=== PATIENT | female | born 1970 | race African-American/Black ===

== ENCOUNTER 2017-12-20 00:42 | Emergency (ER) | payer OTHER ==
[~2017-12-20] VITALS: Ht 167.6 cm; Wt 90.0 kg
[2017-12-20] MEDS ORDERED: DIPH25CA48 PO (01:02)
[2017-12-20] MEDS ORDERED: PRED20 PO (01:02)
[2017-12-20] MEDS ORDERED: INSLAN SQ (01:02)
[2017-12-20] MEDS ORDERED: ALBU8.5H8 IH (01:02)
[2017-12-20 01:03] LABS: GLUCOSE,POINT OF CARE 240 MG/DL (70-110)
[2017-12-20 01:46] LABS: BASOPHILS % (AUTO) 0.1 % (0.0-2.0); EOSINOPHILS % (AUTO) 0 % (1.0-6.0); HEMATOCRIT 37.2 % (36-46); HEMOGLOBIN 12.8 g/dL (12.0-16.0); LYMPHOCYTES # (AUTO) 1.8 K/uL (1.0-4.8); LYMPHOCYTES % (AUTO) 21.8 % (22.0-44.0); MEAN CORPUSCULAR HEMOGLOBIN 29.1 pg (26.0-34.0); MEAN CORPUSCULAR HGB CONC 34.4 G/dL (31.0-37.0); MEAN CORPUSCULAR VOLUME 85 fL (80-100); MONOCYTES # (AUTO) 0.7 K/uL (0.1-1.0); NEUTROPHILS # (AUTO) 5.8 K/uL (1.8-7.7); NEUTROPHILS % (AUTO) 70.1 % (40.0-70.0); PLATELET COUNT (AUTO) 201 K/uL (150-450); RED CELL DISTRIBUTION WIDTH 14.6 % (11.5-14.5)
[2017-12-20 01:54] LABS: ANION GAP 9 mmol/L (8-16); CALCIUM, TOTAL 8.8 mg/dL (8.8-10.5); CARBON DIOXIDE 26 mmol/L (22-29); CHLORIDE 104 mmol/L (98-107); CREATININE 0.52 mg/dL (0.60-1.30); GLOMERULAR FILTR. RATE CALC > 60 mL/min (>60); GLUCOSE,RANDOM 214 mg/dL (70-110); POTASSIUM 3.5 mmol/L (3.5-5.1); SODIUM SERUM 139 mmol/L (136-145); UREA NITROGEN, BLOOD 9 mg/dL (7-18)
[2017-12-20 02:00] LABS: ALANINE AMINOTRANSFERASE 32 U/L (12-78); ALBUMIN 3.7 g/dL (3.4-5.0); ALKALINE PHOSPHATASE 123 U/L (46-116); ASPARTATE AMINOTRANSFERASE 16 U/L (15-37); BILIRUBIN,TOTAL 0.7 mg/dL (0.1-1.0); TOTAL PROTEIN, SERUM 6.8 g/dL (6.4-8.2)
[2017-12-20 03:15] LABS: AMPHET/METH SCREEN,URINE NEGATIVE (NEGATIVE); BARBITURATE SCREEN, URINE NEGATIVE (NEGATIVE); BENZODIAZEPINES SCREEN,URINE NEGATIVE (NEGATIVE); CANNABINOID SCREEN,URINE NEGATIVE (NEGATIVE); COCAINE SCREEN,URINE NEGATIVE (NEGATIVE); METHADONE SCREEN, URINE NEGATIVE (NEGATIVE); OPIATE SCREEN,URINE NEGATIVE (NEGATIVE)
[2017-12-20 03:16] LABS: PHENCYCLIDINE SCREEN,URINE NEGATIVE (NEGATIVE)
[2017-12-20 03:30] VITALS: BP 139/89
== END 2017-12-20 03:59 | disposition home or self-care (01) ==
LOC: EMS 00:44
DX: F41.9 Anxiety disorder, unspecified (principal); E11.65 Type 2 diabetes mellitus with hyperglycemia; F20.9 Schizophrenia, unspecified; F17.210 Nicotine dependence, cigarettes, uncomplicated; Z79.4 Long term (current) use of insulin; Z79.899 Other long term (current) drug therapy
CPT/HCPCS: 36415; 80053; 80307; 82962; 84703; 85025; 99284; G0480

== ENCOUNTER 2018-02-03 22:55 | Emergency (ER) | payer OTHER ==
[~2018-02-03] VITALS: Ht 167.6 cm; Wt 89.1 kg
[~2018-02-03 22:55] MED LIST: ALBU8.5H8 IH; DIPH25CA48 PO; INSLAN SQ; PRED20 PO
[2018-02-04] MEDS ORDERED: RISP1 PO (00:17)
[2018-02-04] MEDS ORDERED: BENZ1TAB10 PO (00:17)
[2018-02-04] MEDS ORDERED: METF-960 PO (00:17)
[2018-02-04 00:39] LABS: GLUCOSE,POINT OF CARE 195 MG/DL (70-110)
[2018-02-04] MEDS ORDERED: LORazepam 2 MG TABLET PO ONE (01:00)
[2018-02-04 01:04] LABS: BASOPHILS % (AUTO) 0.2 % (0.0-2.0); EOSINOPHILS % (AUTO) 0 % (1.0-6.0); HEMATOCRIT 35.5 % (36-46); HEMOGLOBIN 12.1 g/dL (12.0-16.0); LYMPHOCYTES % (AUTO) 26.9 % (22.0-44.0); MEAN CORPUSCULAR HEMOGLOBIN 29.1 pg (26.0-34.0); MEAN CORPUSCULAR HGB CONC 34.1 G/dL (31.0-37.0); MEAN CORPUSCULAR VOLUME 85 fL (80-100); MONOCYTES # (AUTO) 0.5 K/uL (0.1-1.0); MONOCYTES % (AUTO) 6.7 % (2.0-9.0); NEUTROPHILS # (AUTO) 4.8 K/uL (1.8-7.7); NEUTROPHILS % (AUTO) 66.2 % (40.0-70.0); PLATELET COUNT (AUTO) 136 K/uL (150-450); RED BLOOD CELL COUNT(AUTO) 4.16 MIL/uL (4.00-5.20)
[2018-02-04 01:11] LABS: ANION GAP 8 mmol/L (8-16); CALCIUM, TOTAL 8.6 mg/dL (8.8-10.5); CARBON DIOXIDE 27 mmol/L (22-29); CHLORIDE 104 mmol/L (98-107); CREATININE 0.71 mg/dL (0.60-1.30); GLOMERULAR FILTR. RATE CALC > 60 mL/min (>60); GLUCOSE,RANDOM 196 mg/dL (70-110); POTASSIUM 4.1 mmol/L (3.5-5.1); SODIUM SERUM 139 mmol/L (136-145); UREA NITROGEN, BLOOD 14 mg/dL (7-18)
[2018-02-04 01:17] LABS: ALANINE AMINOTRANSFERASE 28 U/L (12-78); ALBUMIN 3.3 g/dL (3.4-5.0); ALKALINE PHOSPHATASE 121 U/L (46-116); ASPARTATE AMINOTRANSFERASE 14 U/L (15-37); BILIRUBIN,TOTAL 0.4 mg/dL (0.1-1.0); TOTAL PROTEIN, SERUM 6.4 g/dL (6.4-8.2)
[2018-02-04 03:30] VITALS: BP 117/68
== END 2018-02-04 04:03 | disposition home or self-care (01) ==
LOC: EMS 22:56
DX: F32.9 Major depressive disorder, single episode, unspecified (principal); F41.9 Anxiety disorder, unspecified; F20.9 Schizophrenia, unspecified; E11.9 Type 2 diabetes mellitus without complications; F17.210 Nicotine dependence, cigarettes, uncomplicated; Z86.79 Personal history of other diseases of the circulatory system; Z98.51 Tubal ligation status; Z79.4 Long term (current) use of insulin; Z79.84 Long term (current) use of oral hypoglycemic drugs; Z79.899 Other long term (current) drug therapy
CPT/HCPCS: 36415; 80053; 82962; 85025; 93005; 99285; G0480

== ENCOUNTER 2018-03-21 20:28 | Inpatient (IN) | payer MEDICAID, OTHER ==
[~2018-03-21] VITALS: Ht 167.6 cm; Wt 87.2 kg
[~2018-03-21 20:28] MED LIST changes: -ALBU8.5H8 IH; +BENZ1TAB10 PO; -DIPH25CA48 PO; +METF-960 PO; -PRED20 PO; +RISP1 PO
[2018-03-21 22:42] LABS: BASOPHILS % (AUTO) 0.1 % (0.0-2.0); EOSINOPHILS % (AUTO) 0 % (1.0-6.0); HEMATOCRIT 34.9 % (36-46); LYMPHOCYTES # (AUTO) 2.4 K/uL (1.0-4.8); LYMPHOCYTES % (AUTO) 38.6 % (22.0-44.0); MEAN CORPUSCULAR HGB CONC 34.4 G/dL (31.0-37.0); MEAN CORPUSCULAR VOLUME 81 fL (80-100); MONOCYTES # (AUTO) 0.5 K/uL (0.1-1.0); NEUTROPHILS # (AUTO) 3.3 K/uL (1.8-7.7); NEUTROPHILS % (AUTO) 53.3 % (40.0-70.0); PLATELET COUNT (AUTO) 106 K/uL (150-450); RED BLOOD CELL COUNT(AUTO) 4.29 MIL/uL (4.00-5.20); RED CELL DISTRIBUTION WIDTH 14.6 % (11.5-14.5)
[2018-03-21 23:00] LABS: ANION GAP 5 mmol/L (8-16); CALCIUM, TOTAL 8.2 mg/dL (8.8-10.5); CARBON DIOXIDE 30 mmol/L (22-29); CHLORIDE 100 mmol/L (98-107); CREATININE 0.62 mg/dL (0.60-1.30); GLOMERULAR FILTR. RATE CALC > 60 mL/min (>60); GLUCOSE,RANDOM 175 mg/dL (70-110); POTASSIUM 3.4 mmol/L (3.5-5.1); SODIUM SERUM 135 mmol/L (136-145); UREA NITROGEN, BLOOD 11 mg/dL (7-18)
[2018-03-21 23:02] LABS: AMPHET/METH SCREEN,URINE NEGATIVE (NEGATIVE); BARBITURATE SCREEN, URINE NEGATIVE (NEGATIVE); BENZODIAZEPINES SCREEN,URINE NEGATIVE (NEGATIVE); CANNABINOID SCREEN,URINE NEGATIVE (NEGATIVE); COCAINE SCREEN,URINE NEGATIVE (NEGATIVE); METHADONE SCREEN, URINE NEGATIVE (NEGATIVE); OPIATE SCREEN,URINE NEGATIVE (NEGATIVE); PHENCYCLIDINE SCREEN,URINE NEGATIVE (NEGATIVE)
[2018-03-21 23:05] LABS: ALANINE AMINOTRANSFERASE 37 U/L (12-78); ALBUMIN 3.7 g/dL (3.4-5.0); ALKALINE PHOSPHATASE 96 U/L (46-116); ASPARTATE AMINOTRANSFERASE 19 U/L (15-37); BILIRUBIN,TOTAL 0.7 mg/dL (0.1-1.0); TOTAL PROTEIN, SERUM 7.3 g/dL (6.4-8.2)
[2018-03-22 00:12] LABS: CHOL/HDL RATIO 2.8 (3.9-5.7); CHOLESTEROL 110 mg/dL (131-200); FREE T4 (FREE THYROXINE) 1.08 ng/dL (0.76-1.46); HDL CHOLESTEROL 40 mg/dL (40-60); LDL CHOL (CALC.) 55 mg/dL (0-130); THYROID STIMULATING HORMONE 1.42 uIU/mL (0.36-3.74); TRIGLYCERIDES 74 mg/dL (15-150)
[2018-03-22] MEDS ORDERED: POTASSIUM CHLORIDE 20 MEQ ER TABLET PO ONE (00:15)
[2018-03-22 00:24] LABS: HEMOGLOBIN A1C 6.9 % (4.5-6.2)
[2018-03-22 04:54] VITALS: BP 118/77
[2018-03-22] MEDS ORDERED: PNEUMOCOCCAL VACCINE POLYVALENT 0.5 ML VIAL [PPSV23] IM ONE (06:15)
[2018-03-22 08:00] VITALS: BP 107/57
[2018-03-22] MEDS: HALOPERIDOL 5 MG TABLET PO PRN (09:19)
[2018-03-22] MEDS: RisperiDONE 1 MG TABLET PO SCH ×2 (10:42→16:44)
[2018-03-22 16:05] VITALS: BP 110/64
[2018-03-23 07:10] VITALS: BP 118/62
[2018-03-23 08:29] VITALS: BP 119/72
[2018-03-23] MEDS ORDERED: PETROLATUM,WHITE 71 GM JELLY TP PRN (08:45)
[2018-03-23] MEDS ORDERED: BACITRACIN 28.4 GM OINTMENT TP PRN (08:45)
[2018-03-23] MEDS ORDERED: BENZOCAINE/MENTHOL LOZENGE MM PRN (08:45)
[2018-03-23] MEDS ORDERED: POTASSIUM CHLORIDE 20 MEQ ER TABLET PO ONE (08:45)
[2018-03-23] MEDS ORDERED: CloNIDine HCL 0.1 MG TABLET PO PRN (08:45)
[2018-03-23] MEDS ORDERED: ACETAMINOPHEN 325 MG TABLET PO PRN (08:45)
[2018-03-23] MEDS ORDERED: IBUPROFEN 600 MG TABLET PO PRN (08:45)
[2018-03-23] MEDS ORDERED: GLUCAGON,HUMAN RECOMBINANT 1 MG VIAL IM PRN (08:45)
[2018-03-23] MEDS ORDERED: MAGNESIUM HYDROXIDE SUSPENSION 30 ML UDCUP PO PRN (08:45)
[2018-03-23] MEDS ORDERED: ALBUTEROL SULFATE HFA 90 MCG/PUFF 8 GM INHALER IH PRN (08:45)
[2018-03-23] MEDS ORDERED: MAG HYDROX/AL HYDROX/SIMETH ES 30 ML SUSPENSION UDCUP PO PRN (08:45)
[2018-03-23] MEDS ORDERED: LOPERAMIDE HCL 2 MG CAPSULE PO PRN (08:45)
[2018-03-23] MEDS ORDERED: ONDANSETRON HCL 4 MG TABLET PO PRN (08:45)
[2018-03-23] MEDS: RisperiDONE 1 MG TABLET PO SCH ×2 (08:48→17:13)
[2018-03-23] MEDS: DOCUSATE SODIUM 100 MG CAPSULE PO SCH (09:05)
[2018-03-23] MEDS: OMEPRAZOLE 20 MG CAPSULE PO SCH (09:05)
[2018-03-23] MEDS: CHOLECALCIFEROL (VIT D3) 1,000 UNITS TABLET PO SCH (09:05)
[2018-03-23] MEDS: NICOTINE 21 MG/24 HOUR PATCH TD SCH (10:08)
[2018-03-23 10:59] LABS: GLUCOSE,POINT OF CARE 186 MG/DL (70-110)
[2018-03-23] MEDS: INSULIN LISPRO 100 UNITS/ML SQ PRN ×3 (11:51→21:00)
[2018-03-23 13:48] LABS: GLUCOMETER DEV NAME(LOC) BV3S 2; GLUCOSE,POINT OF CARE 142 MG/DL (70-110)
[2018-03-23 16:25] VITALS: BP 102/64
[2018-03-23 16:53] LABS: GLUCOMETER DEV NAME(LOC) BV3S 2; GLUCOSE,POINT OF CARE 234 MG/DL (70-110)
[2018-03-23] MEDS: HALOPERIDOL 5 MG TABLET PO PRN (17:13)
[2018-03-23] MEDS: MetFORMIN HCL 500 MG TABLET PO SCH (17:13)
[2018-03-23] MEDS: ZOLPIDEM TARTRATE 10 MG TABLET PO PRN (21:02)
[2018-03-23 21:18] LABS: GLUCOMETER DEV NAME(LOC) BV3S 2; GLUCOSE,POINT OF CARE 190 MG/DL (70-110)
[2018-03-24 06:25] VITALS: BP 117/68
[2018-03-24] MEDS: MetFORMIN HCL 500 MG TABLET PO SCH ×2 (06:44→16:54)
[2018-03-24] MEDS: INSULIN LISPRO 100 UNITS/ML SQ PRN ×2 (06:46→12:09)
[2018-03-24 07:18] LABS: GLUCOMETER DEV NAME(LOC) BV3S 2; GLUCOSE,POINT OF CARE 169 MG/DL (70-110)
[2018-03-24] MEDS: CHOLECALCIFEROL (VIT D3) 1,000 UNITS TABLET PO SCH (08:04)
[2018-03-24] MEDS: OMEPRAZOLE 20 MG CAPSULE PO SCH (08:04)
[2018-03-24] MEDS: DOCUSATE SODIUM 100 MG CAPSULE PO SCH (08:04)
[2018-03-24] MEDS: RisperiDONE 1 MG TABLET PO SCH ×2 (08:04→16:54)
[2018-03-24] MEDS: NICOTINE 21 MG/24 HOUR PATCH TD SCH (08:05)
[2018-03-24 08:11] VITALS: BP 126/78
[2018-03-24 08:54] LABS: POTASSIUM 4.1 mmol/L (3.5-5.1)
[2018-03-24 12:24] LABS: GLUCOMETER DEV NAME(LOC) BV3S 2; GLUCOSE,POINT OF CARE 186 MG/DL (70-110)
[2018-03-24] MEDS: FLUoxetine HCL 20 MG CAPSULE PO SCH (14:20)
[2018-03-24 16:16] VITALS: BP 129/80
[2018-03-24 16:48] LABS: GLUCOMETER DEV NAME(LOC) BV3S 2; GLUCOSE,POINT OF CARE 94 MG/DL (70-110)
[2018-03-24] MEDS: HALOPERIDOL 5 MG TABLET PO PRN (16:54)
[2018-03-24] MEDS: ZOLPIDEM TARTRATE 10 MG TABLET PO PRN (20:43)
[2018-03-24 21:22] LABS: GLUCOMETER DEV NAME(LOC) BV3S 2; GLUCOSE,POINT OF CARE 123 MG/DL (70-110)
[2018-03-25 05:29] VITALS: BP 100/60
[2018-03-25 06:24] LABS: GLUCOMETER DEV NAME(LOC) BV3S 2; GLUCOSE,POINT OF CARE 171 MG/DL (70-110)
[2018-03-25] MEDS: MetFORMIN HCL 500 MG TABLET PO SCH ×2 (06:50→17:27)
[2018-03-25] MEDS: INSULIN LISPRO 100 UNITS/ML SQ PRN ×4 (06:52→20:23)
[2018-03-25 08:28] VITALS: BP 123/82
[2018-03-25] MEDS: CHOLECALCIFEROL (VIT D3) 1,000 UNITS TABLET PO SCH (08:53)
[2018-03-25] MEDS: RisperiDONE 1 MG TABLET PO SCH ×2 (08:53→16:10)
[2018-03-25] MEDS: NICOTINE 21 MG/24 HOUR PATCH TD SCH (08:53)
[2018-03-25] MEDS: FLUoxetine HCL 20 MG CAPSULE PO SCH (08:53)
[2018-03-25] MEDS: DOCUSATE SODIUM 100 MG CAPSULE PO SCH (08:53)
[2018-03-25] MEDS: OMEPRAZOLE 20 MG CAPSULE PO SCH (08:53)
[2018-03-25 11:43] LABS: GLUCOMETER DEV NAME(LOC) BV3S 2; GLUCOSE,POINT OF CARE 148 MG/DL (70-110)
[2018-03-25 16:24] VITALS: BP 133/76
[2018-03-25 16:54] LABS: GLUCOMETER DEV NAME(LOC) BV3S 2; GLUCOSE,POINT OF CARE 158 MG/DL (70-110)
[2018-03-25 20:37] LABS: GLUCOMETER DEV NAME(LOC) BV3S 2; GLUCOSE,POINT OF CARE 145 MG/DL (70-110)
[2018-03-25] MEDS: ZOLPIDEM TARTRATE 10 MG TABLET PO PRN (21:14)
[2018-03-26 02:28] VITALS: BP 128/78
[2018-03-26] MEDS: INSULIN LISPRO 100 UNITS/ML SQ PRN ×4 (06:42→21:00)
[2018-03-26] MEDS: MetFORMIN HCL 500 MG TABLET PO SCH ×2 (06:47→17:14)
[2018-03-26 08:17] VITALS: BP 120/71
[2018-03-26] MEDS: OMEPRAZOLE 20 MG CAPSULE PO SCH (08:54)
[2018-03-26] MEDS: RisperiDONE 1 MG TABLET PO SCH ×2 (08:54→17:14)
[2018-03-26] MEDS: CHOLECALCIFEROL (VIT D3) 1,000 UNITS TABLET PO SCH (08:54)
[2018-03-26] MEDS: DOCUSATE SODIUM 100 MG CAPSULE PO SCH (08:54)
[2018-03-26] MEDS: FLUoxetine HCL 20 MG CAPSULE PO SCH (08:55)
[2018-03-26] MEDS: NICOTINE 21 MG/24 HOUR PATCH TD SCH (08:55)
[2018-03-26 11:49] LABS: GLUCOMETER DEV NAME(LOC) BV3S 2; GLUCOSE,POINT OF CARE 177 MG/DL (70-110)
[2018-03-26 11:49] LABS: GLUCOMETER DEV NAME(LOC) BV3S 2; GLUCOSE,POINT OF CARE 199 MG/DL (70-110)
[2018-03-26 16:17] VITALS: BP 136/72
[2018-03-26] MEDS: HALOPERIDOL 5 MG TABLET PO PRN (17:14)
[2018-03-26 18:38] LABS: GLUCOMETER DEV NAME(LOC) BV3S 2; GLUCOSE,POINT OF CARE 236 MG/DL (70-110)
[2018-03-26] MEDS: ZOLPIDEM TARTRATE 10 MG TABLET PO PRN (20:47)
[2018-03-26 20:58] LABS: GLUCOMETER DEV NAME(LOC) BV3S 2; GLUCOSE,POINT OF CARE 159 MG/DL (70-110)
[2018-03-27 06:08] LABS: GLUCOMETER DEV NAME(LOC) BV3S 2; GLUCOSE,POINT OF CARE 132 MG/DL (70-110)
[2018-03-27] MEDS: INSULIN LISPRO 100 UNITS/ML SQ PRN ×3 (06:11→21:10)
[2018-03-27] MEDS: MetFORMIN HCL 500 MG TABLET PO SCH ×2 (06:15→16:34)
[2018-03-27 08:14] VITALS: BP 100/57
[2018-03-27] MEDS: CHOLECALCIFEROL (VIT D3) 1,000 UNITS TABLET PO SCH (09:01)
[2018-03-27] MEDS: RisperiDONE 1 MG TABLET PO SCH ×2 (09:01→16:34)
[2018-03-27] MEDS: NICOTINE 21 MG/24 HOUR PATCH TD SCH (09:02)
[2018-03-27] MEDS: DOCUSATE SODIUM 100 MG CAPSULE PO SCH (09:03)
[2018-03-27] MEDS: OMEPRAZOLE 20 MG CAPSULE PO SCH (09:03)
[2018-03-27] MEDS: FLUoxetine HCL 20 MG CAPSULE PO SCH (09:08)
[2018-03-27 14:03] LABS: GLUCOMETER DEV NAME(LOC) BV2S 2; GLUCOSE,POINT OF CARE 157 MG/DL (70-110)
[2018-03-27 16:30] VITALS: BP 148/75
[2018-03-27 16:48] LABS: GLUCOMETER DEV NAME(LOC) BV2S 2; GLUCOSE,POINT OF CARE 116 MG/DL (70-110)
[2018-03-27 21:37] LABS: GLUCOMETER DEV NAME(LOC) BV2S 2; GLUCOSE,POINT OF CARE 182 MG/DL (70-110)
[2018-03-28 02:20] VITALS: BP 108/62
[2018-03-28] MEDS: ZOLPIDEM TARTRATE 10 MG TABLET PO PRN (02:22)
[2018-03-28] MEDS: MetFORMIN HCL 500 MG TABLET PO SCH ×2 (07:05→16:35)
[2018-03-28] MEDS: INSULIN LISPRO 100 UNITS/ML SQ PRN ×4 (07:20→20:15)
[2018-03-28 07:38] LABS: GLUCOMETER DEV NAME(LOC) BV2S 2; GLUCOSE,POINT OF CARE 126 MG/DL (70-110)
[2018-03-28 08:36] VITALS: BP 120/72
[2018-03-28] MEDS: CHOLECALCIFEROL (VIT D3) 1,000 UNITS TABLET PO SCH (09:50)
[2018-03-28] MEDS: OMEPRAZOLE 20 MG CAPSULE PO SCH (09:50)
[2018-03-28] MEDS: RisperiDONE 1 MG TABLET PO SCH ×2 (09:50→16:57)
[2018-03-28] MEDS: DOCUSATE SODIUM 100 MG CAPSULE PO SCH (09:50)
[2018-03-28] MEDS: FLUoxetine HCL 20 MG CAPSULE PO SCH (09:50)
[2018-03-28] MEDS: NICOTINE 21 MG/24 HOUR PATCH TD SCH (09:51)
[2018-03-28 11:24] LABS: GLUCOMETER DEV NAME(LOC) BV2S 2; GLUCOSE,POINT OF CARE 210 MG/DL (70-110)
[2018-03-28 16:17] VITALS: BP 128/65
[2018-03-28 18:13] LABS: GLUCOMETER DEV NAME(LOC) BV2S 2; GLUCOSE,POINT OF CARE 156 MG/DL (70-110)
[2018-03-28 20:22] LABS: GLUCOMETER DEV NAME(LOC) BV2S 2; GLUCOSE,POINT OF CARE 123 MG/DL (70-110)
[2018-03-29] MEDS: MetFORMIN HCL 500 MG TABLET PO SCH ×2 (05:15→16:42)
[2018-03-29 05:33] LABS: GLUCOMETER DEV NAME(LOC) BV2S 2; GLUCOSE,POINT OF CARE 145 MG/DL (70-110)
[2018-03-29 06:02] VITALS: BP 124/76
[2018-03-29] MEDS: INSULIN LISPRO 100 UNITS/ML SQ PRN ×2 (06:02→12:32)
[2018-03-29] MEDS ORDERED: FLUO20CA30 PO (09:28)
[2018-03-29] MEDS ORDERED: METF1000 PO (09:28)
[2018-03-29 09:41] VITALS: BP 113/79
[2018-03-29] MEDS: FLUoxetine HCL 20 MG CAPSULE PO SCH (09:48)
[2018-03-29] MEDS: OMEPRAZOLE 20 MG CAPSULE PO SCH (09:48)
[2018-03-29] MEDS: RisperiDONE 1 MG TABLET PO SCH ×2 (09:48→16:42)
[2018-03-29] MEDS: DOCUSATE SODIUM 100 MG CAPSULE PO SCH (09:48)
[2018-03-29] MEDS: CHOLECALCIFEROL (VIT D3) 1,000 UNITS TABLET PO SCH (09:49)
[2018-03-29] MEDS: NICOTINE 21 MG/24 HOUR PATCH TD SCH (09:52)
[2018-03-29 12:29] LABS: GLUCOMETER DEV NAME(LOC) BV2S 2; GLUCOSE,POINT OF CARE 201 MG/DL (70-110)
[2018-03-29 17:03] LABS: GLUCOMETER DEV NAME(LOC) BV2S 2; GLUCOSE,POINT OF CARE 123 MG/DL (70-110)
[2018-03-29 17:06] VITALS: BP 115/74
== END 2018-03-29 17:26 | disposition home or self-care (01) | DRG 750 ==
LOC: EMS 22:47 → B3A 03-22 01:16 → B2S 03-27 14:29
PROVIDERS: ADMIT Psychiatry & Neurology Child & Adolescent Psychiatry; ATTEND Psychiatry & Neurology Child & Adolescent Psychiatry
DX: F25.0 Schizoaffective disorder, bipolar type (principal); E83.51 Hypocalcemia; E11.9 Type 2 diabetes mellitus without complications; E87.1 Hypo-osmolality and hyponatremia; E87.6 Hypokalemia; F17.200 Nicotine dependence, unspecified, uncomplicated; F41.9 Anxiety disorder, unspecified; K59.00 Constipation, unspecified; Z86.73 Personal history of transient ischemic attack (TIA), and cerebral infarction without residual deficits; Z91.19 Patient's noncompliance with other medical treatment and regimen; Z28.21 Immunization not carried out because of patient refusal
CPT/HCPCS: 83036; 84132; 84295; 84439; 84443; 90686; 90732; G0480

== ENCOUNTER 2018-12-25 13:58 | Inpatient (IN) | payer MEDICAID ==
[~2018-12-25] VITALS: Ht 167.6 cm; Wt 88.5 kg
[~2018-12-25 13:58] MED LIST changes: -BENZ1TAB10 PO; +FLUO20CA30 PO; -INSLAN SQ; +METF1000 PO
[2018-12-25 14:32] VITALS: BP 138/81
[2018-12-25] MEDS ORDERED: ACETAMINOPHEN 325 MG TABLET PO PRN (14:45)
[2018-12-25 16:36] VITALS: BP 111/76
[2018-12-25 17:11] LABS: GLUCOMETER DEV NAME(LOC) BV2S.; GLUCOSE,POINT OF CARE 140 MG/DL (70-110)
[2018-12-26] MEDS ORDERED: PNEUMOCOCCAL VACCINE POLYVALENT 0.5 ML VIAL [PPSV23] IM ONE (01:00)
[2018-12-26 06:27] VITALS: BP 106/65
[2018-12-26] MEDS: MetFORMIN HCL 500 MG TABLET PO SCH ×2 (06:52→16:33)
[2018-12-26 07:52] LABS: BASOPHILS % (AUTO) 0.2 % (0.0-2.0); EOSINOPHILS % (AUTO) 0 % (1.0-6.0); HEMATOCRIT 36.6 % (36-46); HEMOGLOBIN 12.3 g/dL (12.0-16.0); LYMPHOCYTES % (AUTO) 38.9 % (22.0-44.0); MEAN CORPUSCULAR HEMOGLOBIN 29.5 pg (26.0-34.0); MEAN CORPUSCULAR HGB CONC 33.7 G/dL (31.0-37.0); MEAN CORPUSCULAR VOLUME 87 fL (80-100); MONOCYTES # (AUTO) 0.4 K/uL (0.1-1.0); MONOCYTES % (AUTO) 8.1 % (2.0-9.0); NEUTROPHILS # (AUTO) 2.7 K/uL (1.8-7.7); NEUTROPHILS % (AUTO) 52.8 % (40.0-70.0); PLATELET COUNT (AUTO) 193 K/uL (150-450); RED BLOOD CELL COUNT(AUTO) 4.19 MIL/uL (4.00-5.20); RED CELL DISTRIBUTION WIDTH 13.6 % (11.5-14.5)
[2018-12-26 08:03] VITALS: BP 100/67
[2018-12-26] MEDS: HALOPERIDOL 5 MG TABLET PO PRN (12:53)
[2018-12-26] MEDS: FLUoxetine HCL 20 MG CAPSULE PO SCH (14:16)
[2018-12-26 16:13] VITALS: BP 107/71
[2018-12-26] MEDS: LITHIUM CARBONATE 300 MG CAPSULE PO SCH (16:33)
[2018-12-26] MEDS: LORazepam 2 MG TABLET PO PRN (18:20)
[2018-12-27 06:15] VITALS: BP 110/76
[2018-12-27] MEDS: MetFORMIN HCL 500 MG TABLET PO SCH ×2 (06:52→16:45)
[2018-12-27 08:03] LABS: BASOPHILS % (AUTO) 0.2 % (0.0-2.0); EOSINOPHILS % (AUTO) 0 % (1.0-6.0); HEMATOCRIT 37.8 % (36-46); HEMOGLOBIN 12.7 g/dL (12.0-16.0); LYMPHOCYTES # (AUTO) 1.9 K/uL (1.0-4.8); LYMPHOCYTES % (AUTO) 33.1 % (22.0-44.0); MEAN CORPUSCULAR HEMOGLOBIN 29.3 pg (26.0-34.0); MEAN CORPUSCULAR HGB CONC 33.5 G/dL (31.0-37.0); MEAN CORPUSCULAR VOLUME 87 fL (80-100); MONOCYTES # (AUTO) 0.4 K/uL (0.1-1.0); MONOCYTES % (AUTO) 6.9 % (2.0-9.0); NEUTROPHILS # (AUTO) 3.5 K/uL (1.8-7.7); NEUTROPHILS % (AUTO) 59.8 % (40.0-70.0); PLATELET COUNT (AUTO) 192 K/uL (150-450); RED BLOOD CELL COUNT(AUTO) 4.33 MIL/uL (4.00-5.20); RED CELL DISTRIBUTION WIDTH 13.8 % (11.5-14.5)
[2018-12-27 08:13] LABS: LITHIUM < 0.20 mmol/L (0.60-1.20)
[2018-12-27 08:21] LABS: ALANINE AMINOTRANSFERASE 25 U/L (12-78); ALBUMIN 3.8 g/dL (3.4-5.0); ALKALINE PHOSPHATASE 89 U/L (46-116); ANION GAP 8 mmol/L (8-16); ASPARTATE AMINOTRANSFERASE 13 U/L (15-37); BILIRUBIN,TOTAL 0.6 mg/dL (0.1-1.0); CALCIUM, TOTAL 9.3 mg/dL (8.8-10.5); CARBON DIOXIDE 29 mmol/L (22-29); CHLORIDE 105 mmol/L (98-107); CHOL/HDL RATIO 3.9 (3.9-5.7); CHOLESTEROL 171 mg/dL (131-200); CREATININE 0.58 mg/dL (0.60-1.30); GLOMERULAR FILTR. RATE CALC > 60 mL/min (>60); GLUCOSE,RANDOM 114 mg/dL (70-110); HDL CHOLESTEROL 44 mg/dL (40-60); LDL CHOL (CALC.) 100 mg/dL (0-130); POTASSIUM 3.8 mmol/L (3.5-5.1); SODIUM SERUM 142 mmol/L (136-145); THYROID STIMULATING HORMONE 1.77 uIU/mL (0.36-3.74); TOTAL PROTEIN, SERUM 6.9 g/dL (6.4-8.2); TRIGLYCERIDES 133 mg/dL (15-150); UREA NITROGEN, BLOOD 10 mg/dL (7-18)
[2018-12-27] MEDS: LITHIUM CARBONATE 300 MG CAPSULE PO SCH ×2 (08:27→16:45)
[2018-12-27] MEDS: FLUoxetine HCL 20 MG CAPSULE PO SCH (08:27)
[2018-12-27 08:32] VITALS: BP 103/63
[2018-12-27 16:16] VITALS: BP 105/65
[2018-12-28 02:24] VITALS: BP 104/63
[2018-12-28] MEDS: MetFORMIN HCL 500 MG TABLET PO SCH ×2 (06:53→16:10)
[2018-12-28 08:14] VITALS: BP 101/61
[2018-12-28] MEDS: LITHIUM CARBONATE 300 MG CAPSULE PO SCH ×2 (08:24→16:10)
[2018-12-28] MEDS: FLUoxetine HCL 20 MG CAPSULE PO SCH (08:24)
[2018-12-28 16:10] VITALS: BP 106/71
[2018-12-29 01:41] VITALS: BP 98/65
[2018-12-29] MEDS: MetFORMIN HCL 500 MG TABLET PO SCH ×2 (06:34→16:15)
[2018-12-29 08:21] VITALS: BP 110/62
[2018-12-29] MEDS: LITHIUM CARBONATE 300 MG CAPSULE PO SCH ×2 (09:00→16:15)
[2018-12-29] MEDS ORDERED: FLUoxetine HCL 20 MG CAPSULE PO SCH (09:00)
[2018-12-29] MEDS: LORazepam 2 MG TABLET PO PRN (10:52)
[2018-12-29] MEDS ORDERED: RisperiDONE MICROSPHERES 50 MG/2 ML SYRINGE IM ONE (11:30)
[2018-12-29 16:08] VITALS: BP 100/61
[2018-12-29 16:31] LABS: GLUCOMETER DEV NAME(LOC) BV2S.; GLUCOSE,POINT OF CARE 229 MG/DL (70-110)
[2018-12-30 06:10] VITALS: BP 108/66
[2018-12-30] MEDS: MetFORMIN HCL 500 MG TABLET PO SCH ×2 (06:20→16:05)
[2018-12-30 08:19] VITALS: BP 119/68
[2018-12-30] MEDS: FLUoxetine HCL 20 MG CAPSULE PO SCH (08:28)
[2018-12-30] MEDS: LITHIUM CARBONATE 300 MG CAPSULE PO SCH ×2 (08:28→16:05)
[2018-12-30] MEDS: HALOPERIDOL 5 MG TABLET PO PRN (16:05)
[2018-12-30 16:20] VITALS: BP 117/62
[2018-12-31] VITALS (10 sets, daily range): BP systolic 100–137; BP diastolic 60–80
[2018-12-31] MEDS: ZOLPIDEM TARTRATE 10 MG TABLET PO PRN ×2 (00:02→21:00)
[2018-12-31] MEDS: MetFORMIN HCL 500 MG TABLET PO SCH ×2 (06:28→16:58)
[2018-12-31] MEDS: FLUoxetine HCL 20 MG CAPSULE PO SCH (09:03)
[2018-12-31] MEDS: LITHIUM CARBONATE 300 MG CAPSULE PO SCH (09:03)
[2018-12-31] MEDS: TRIHEXYPHENIDYL HCL 2 MG TABLET PO SCH ×2 (14:37→16:58)
[2018-12-31] MEDS: LITHIUM CARBONATE 300 MG TABLET PO SCH (16:59)
[2019-01-01] VITALS (7 sets, daily range): BP systolic 105–133; BP diastolic 67–77
[2019-01-01] MEDS: LORazepam 2 MG TABLET PO PRN (00:13)
[2019-01-01] MEDS: MetFORMIN HCL 500 MG TABLET PO SCH ×2 (06:57→17:25)
[2019-01-01] MEDS: TRIHEXYPHENIDYL HCL 2 MG TABLET PO SCH ×3 (09:06→16:36)
[2019-01-01] MEDS: FLUoxetine HCL 20 MG CAPSULE PO SCH (09:06)
[2019-01-01] MEDS: LITHIUM CARBONATE 300 MG TABLET PO SCH ×2 (09:11→16:36)
[2019-01-01] MEDS: ZOLPIDEM TARTRATE 10 MG TABLET PO PRN (21:10)
[2019-01-02] VITALS (8 sets, daily range): BP systolic 108–109; BP diastolic 60–72
[2019-01-02] MEDS: MetFORMIN HCL 500 MG TABLET PO SCH ×2 (07:11→17:09)
[2019-01-02] MEDS: LITHIUM CARBONATE 300 MG TABLET PO SCH ×2 (08:38→17:09)
[2019-01-02] MEDS: FLUoxetine HCL 20 MG CAPSULE PO SCH (08:38)
[2019-01-02] MEDS: TRIHEXYPHENIDYL HCL 2 MG TABLET PO SCH ×3 (08:38→17:09)
[2019-01-02] MEDS: ZOLPIDEM TARTRATE 10 MG TABLET PO PRN (20:49)
[2019-01-03 01:49] VITALS: BP 109/69
[2019-01-03 01:50] VITALS: BP 109/69
[2019-01-03] MEDS: MetFORMIN HCL 500 MG TABLET PO SCH ×2 (07:03→16:25)
[2019-01-03] MEDS: TRIHEXYPHENIDYL HCL 2 MG TABLET PO SCH ×3 (08:42→16:25)
[2019-01-03] MEDS: FLUoxetine HCL 20 MG CAPSULE PO SCH (08:42)
[2019-01-03] MEDS: LITHIUM CARBONATE 300 MG TABLET PO SCH (08:42)
[2019-01-03 08:56] VITALS: BP 114/72
[2019-01-03 16:19] VITALS: BP 125/83
[2019-01-03] MEDS: LITHIUM CARBONATE 600 MG CAPSULE PO SCH (16:25)
[2019-01-03] MEDS ORDERED: OLANZapine 5 MG TABLET PO SCH (21:00)
[2019-01-03] MEDS: LORazepam 2 MG TABLET PO PRN (22:43)
[2019-01-04 00:27] VITALS: BP 113/73
[2019-01-04] MEDS: MetFORMIN HCL 500 MG TABLET PO SCH (07:00)
[2019-01-04] MEDS: TRIHEXYPHENIDYL HCL 2 MG TABLET PO SCH ×2 (08:37→12:13)
[2019-01-04] MEDS: FLUoxetine HCL 20 MG CAPSULE PO SCH (08:38)
[2019-01-04] MEDS: LITHIUM CARBONATE 600 MG CAPSULE PO SCH (08:59)
[2019-01-04 09:11] VITALS: BP 116/73
[2019-01-04] MEDS ORDERED: FLUO-191 PO (10:35)
[2019-01-04] MEDS ORDERED: TRIH2TAB3 PO (10:35)
[2019-01-04] MEDS ORDERED: OLAN5TAB2 PO (10:35)
[2019-01-04] MEDS ORDERED: METF-444 PO (10:35)
[2019-01-04] MEDS ORDERED: LITH600 PO (10:35)
== END 2019-01-04 12:40 | disposition home or self-care (01) | DRG 750 ==
LOC: B2S 14:52
PROVIDERS: ADMIT Psychiatry & Neurology Psychiatry; ATTEND Psychiatry & Neurology Psychiatry
DX: F25.0 Schizoaffective disorder, bipolar type (principal); R45.851 Suicidal ideations; E11.9 Type 2 diabetes mellitus without complications; F41.9 Anxiety disorder, unspecified; Z91.5 Personal history of self-harm; Z87.891 Personal history of nicotine dependence
CPT/HCPCS: 83036; 84439; 84443; J2794

== ENCOUNTER 2021-03-01 15:36 | Inpatient (IN) | payer MEDICAID ==
[~2021-03-01] VITALS: Ht 167.6 cm; Wt 79.0 kg
[~2021-03-01 15:36] MED LIST changes: +FLUO-191 PO; -FLUO20CA30 PO; +LITH600C5 PO; +METF-444 PO; -METF-960 PO; -METF1000 PO; +OLAN5TAB52 PO; -RISP1 PO; +TRIH2TAB3 PO
[2021-03-01 17:04] LABS: GLUCOMETER DEV NAME(LOC) POC.BV
[2021-03-01] MEDS ORDERED: ZOLPIDEM TARTRATE 10 MG TABLET PO PRN (17:15)
[2021-03-01] MEDS ORDERED: HALOPERIDOL 5 MG TABLET PO PRN (17:15)
[2021-03-01] MEDS ORDERED: LORazepam 2 MG TABLET PO PRN (17:15)
[2021-03-01 18:00] VITALS: BP 110/68
[2021-03-01] MEDS ORDERED: PNEUMOCOCCAL VACCINE POLYVALENT 0.5 ML VIAL [PPSV23] IM. ONE (18:15)
[2021-03-01] MEDS ORDERED: INFLUENZA VIRUS VACCINE QVS 2021-22 (6MO+)/PF 60 MCG/0.5 ML SYRINGE IM. ONE (18:15)
[2021-03-02 00:50] VITALS: BP 130/73
[2021-03-02 06:45] LABS: GLUCOMETER DEV NAME(LOC) BV2S.; GLUCOSE,POINT OF CARE 98 MG/DL (70-110)
[2021-03-02] MEDS: MetFORMIN HCL 500 MG TABLET PO SCH ×2 (06:50→16:46)
[2021-03-02 08:19] VITALS: BP 100/65
[2021-03-02 08:24] LABS: BASOPHILS % (AUTO) 0.2 % (0.0-2.0); EOSINOPHILS % (AUTO) 0 % (1.0-6.0); HEMATOCRIT 35.8 % (36-46); LYMPHOCYTES # (AUTO) 1.4 K/uL (1.0-4.8); LYMPHOCYTES % (AUTO) 24.5 % (22.0-44.0); MEAN CORPUSCULAR HEMOGLOBIN 29.1 pg (26.0-34.0); MEAN CORPUSCULAR HGB CONC 33.6 G/dL (31.0-37.0); MEAN CORPUSCULAR VOLUME 87 fL (80-100); MONOCYTES # (AUTO) 0.4 K/uL (0.1-1.0); MONOCYTES % (AUTO) 6.6 % (2.0-9.0); NEUTROPHILS # (AUTO) 4.1 K/uL (1.8-7.7); NEUTROPHILS % (AUTO) 68.7 % (40.0-70.0); PLATELET COUNT (AUTO) 221 K/uL (150-450); RED BLOOD CELL COUNT(AUTO) 4.14 MIL/uL (4.00-5.20); RED CELL DISTRIBUTION WIDTH 14.6 % (11.5-14.5)
[2021-03-02 08:39] LABS: HEMOGLOBIN A1C 5.2 % (3.8-5.6)
[2021-03-02 09:10] LABS: ALANINE AMINOTRANSFERASE 17 U/L (12-78); ALBUMIN 3.3 g/dL (3.4-5.0); ALKALINE PHOSPHATASE 68 U/L (46-116); ANION GAP 7 mmol/L (8-16); ASPARTATE AMINOTRANSFERASE 16 U/L (15-37); BILIRUBIN,TOTAL 0.6 mg/dL (0.1-1.0); CALCIUM, TOTAL 8.9 mg/dL (8.8-10.5); CARBON DIOXIDE 26 mmol/L (22-29); CHLORIDE 109 mmol/L (98-107); CHOL/HDL RATIO 3.5 (3.9-5.7); CHOLESTEROL 176 mg/dL (131-200); FREE T4 (FREE THYROXINE) 1.01 ng/dL (0.76-1.46); GLOMERULAR FILTR. RATE CALC > 60 mL/min (>60); GLUCOSE,RANDOM 98 mg/dL (70-110); HCG,QUANTITATIVE < 1 mIU/mL (0-6); HDL CHOLESTEROL 51 mg/dL (40-60); LDL CHOL (CALC.) 104 mg/dL (0-130); SODIUM SERUM 142 mmol/L (136-145); THYROID STIMULATING HORMONE 2.62 uIU/mL (0.36-3.74); TOTAL PROTEIN, SERUM 6.4 g/dL (6.4-8.2); TRIGLYCERIDES 106 mg/dL (15-150); UREA NITROGEN, BLOOD 11 mg/dL (7-18)
[2021-03-02] MEDS: SitaGLIPtin PHOSPHATE 100 MG TABLET PO SCH (09:25)
[2021-03-02] MEDS: TRIHEXYPHENIDYL HCL 2 MG TABLET PO SCH ×2 (12:05→16:46)
[2021-03-02] MEDS ORDERED: CloNIDine HCL 0.1 MG TABLET PO PRN (14:15)
[2021-03-02] MEDS ORDERED: ACETAMINOPHEN 325 MG TABLET PO PRN (14:15)
[2021-03-02] MEDS ORDERED: LOPERAMIDE HCL 2 MG CAPSULE PO PRN (14:15)
[2021-03-02] MEDS ORDERED: IBUPROFEN 400 MG TABLET PO PRN (14:15)
[2021-03-02] MEDS ORDERED: GuaiFENesin/D-METHORPHAN [SUGAR-FREE] 200-20MG/10 ML SYRUP UDCUP PO PRN (14:15)
[2021-03-02] MEDS ORDERED: NICOTINE 14 MG/24 HOUR PATCH TD PRN (14:15)
[2021-03-02] MEDS ORDERED: MAG HYDROX/AL HYDROX/SIMETH ES 30 ML SUSPENSION UDCUP PO PRN (14:15)
[2021-03-02] MEDS ORDERED: DOCUSATE SODIUM 100 MG CAPSULE PO PRN (14:15)
[2021-03-02] MEDS ORDERED: PETROLATUM,WHITE 28 GM JELLY TP PRN (14:15)
[2021-03-02] MEDS ORDERED: ONDANSETRON HCL 4 MG TABLET PO PRN (14:15)
[2021-03-02] MEDS ORDERED: MAGNESIUM HYDROXIDE SUSPENSION 30 ML UDCUP PO PRN (14:15)
[2021-03-02 16:17] VITALS: BP 122/75
[2021-03-02 17:16] LABS: GLUCOMETER DEV NAME(LOC) BV2S.; GLUCOSE,POINT OF CARE 164 MG/DL (70-110)
[2021-03-02] MEDS: LITHIUM CARBONATE 300 MG ER TABLET PO SCH (20:10)
[2021-03-02 20:57] LABS: GLUCOMETER DEV NAME(LOC) BV2S.; GLUCOSE,POINT OF CARE 86 MG/DL (70-110)
[2021-03-03 00:19] VITALS: BP 128/72
[2021-03-03 06:16] LABS: GLUCOMETER DEV NAME(LOC) BV2S.; GLUCOSE,POINT OF CARE 105 MG/DL (70-110)
[2021-03-03] MEDS: MetFORMIN HCL 500 MG TABLET PO SCH ×2 (06:40→16:56)
[2021-03-03 08:17] VITALS: BP 121/69
[2021-03-03] MEDS: TRIHEXYPHENIDYL HCL 2 MG TABLET PO SCH ×3 (08:25→16:56)
[2021-03-03] MEDS: SitaGLIPtin PHOSPHATE 100 MG TABLET PO SCH (08:25)
[2021-03-03] MEDS: LITHIUM CARBONATE 300 MG ER TABLET PO SCH ×2 (08:25→21:12)
[2021-03-03] MEDS ORDERED: DENTURE ADHESIVE 68 GM CREAM DT PRN (08:45)
[2021-03-03 11:23] LABS: GLUCOMETER DEV NAME(LOC) BV2S.; GLUCOSE,POINT OF CARE 117 MG/DL (70-110)
[2021-03-03] MEDS: SERTRALINE HCL 50 MG TABLET PO SCH (12:31)
[2021-03-03 16:19] VITALS: BP 113/65
[2021-03-03 16:37] LABS: GLUCOMETER DEV NAME(LOC) BV2S.; GLUCOSE,POINT OF CARE 97 MG/DL (70-110)
[2021-03-03 20:35] LABS: GLUCOMETER DEV NAME(LOC) BV2S.; GLUCOSE,POINT OF CARE 92 MG/DL (70-110)
[2021-03-04 06:31] LABS: GLUCOMETER DEV NAME(LOC) BV2S.; GLUCOSE,POINT OF CARE 77 MG/DL (70-110)
[2021-03-04] MEDS: MetFORMIN HCL 500 MG TABLET PO SCH ×2 (06:32→16:47)
[2021-03-04 06:34] VITALS: BP 115/70
[2021-03-04] MEDS: SitaGLIPtin PHOSPHATE 100 MG TABLET PO SCH (08:27)
[2021-03-04] MEDS: SERTRALINE HCL 50 MG TABLET PO SCH (08:27)
[2021-03-04] MEDS: TRIHEXYPHENIDYL HCL 2 MG TABLET PO SCH ×3 (08:27→16:47)
[2021-03-04] MEDS: LITHIUM CARBONATE 300 MG ER TABLET PO SCH ×2 (08:28→20:13)
[2021-03-04 08:31] VITALS: BP 121/68
[2021-03-04 11:13] LABS: GLUCOMETER DEV NAME(LOC) BV2S.; GLUCOSE,POINT OF CARE 128 MG/DL (70-110)
[2021-03-04] MEDS: ALBUTEROL SULFATE HFA 90 MCG/PUFF 8 GM INHALER IH PRN (13:37)
[2021-03-04 16:08] VITALS: BP 133/73
[2021-03-04 17:20] LABS: GLUCOMETER DEV NAME(LOC) BV2S.; GLUCOSE,POINT OF CARE 110 MG/DL (70-110)
[2021-03-05 00:56] VITALS: BP 127/74
[2021-03-05] MEDS: MetFORMIN HCL 500 MG TABLET PO SCH ×2 (06:35→16:35)
[2021-03-05 06:43] LABS: GLUCOMETER DEV NAME(LOC) BV2S.; GLUCOSE,POINT OF CARE 97 MG/DL (70-110)
[2021-03-05 08:29] VITALS: BP 105/61
[2021-03-05] MEDS: LITHIUM CARBONATE 300 MG ER TABLET PO SCH ×2 (09:00→20:18)
[2021-03-05] MEDS: TRIHEXYPHENIDYL HCL 2 MG TABLET PO SCH ×3 (10:04→16:36)
[2021-03-05] MEDS: SERTRALINE HCL 50 MG TABLET PO SCH (10:05)
[2021-03-05] MEDS: SitaGLIPtin PHOSPHATE 50 MG TABLET PO SCH (10:05)
[2021-03-05 16:23] VITALS: BP 104/67
[2021-03-05] MEDS: ALBUTEROL SULFATE HFA 90 MCG/PUFF 8 GM INHALER IH PRN (16:36)
[2021-03-05 17:13] LABS: GLUCOMETER DEV NAME(LOC) BV2S.; GLUCOSE,POINT OF CARE 92 MG/DL (70-110)
[2021-03-06 00:12] VITALS: BP 102/63
[2021-03-06] MEDS: MetFORMIN HCL 500 MG TABLET PO SCH ×2 (06:48→16:10)
[2021-03-06 06:56] LABS: GLUCOMETER DEV NAME(LOC) BV2S.; GLUCOSE,POINT OF CARE 110 MG/DL (70-110)
[2021-03-06 07:58] LABS: COVID AG,FIA SOURCE NASOPHARYNGEAL
[2021-03-06 08:21] VITALS: BP 125/72
[2021-03-06] MEDS: SitaGLIPtin PHOSPHATE 50 MG TABLET PO SCH (08:59)
[2021-03-06] MEDS: TRIHEXYPHENIDYL HCL 2 MG TABLET PO SCH ×3 (09:00→16:10)
[2021-03-06] MEDS: LITHIUM CARBONATE 300 MG ER TABLET PO SCH ×2 (09:00→20:44)
[2021-03-06] MEDS: SERTRALINE HCL 50 MG TABLET PO SCH (09:00)
[2021-03-06 16:07] VITALS: BP 118/68
[2021-03-06 16:48] LABS: GLUCOMETER DEV NAME(LOC) BV2S.; GLUCOSE,POINT OF CARE 86 MG/DL (70-110)
[2021-03-07 03:15] VITALS: BP 138/77
[2021-03-07] MEDS: MetFORMIN HCL 500 MG TABLET PO SCH (06:43)
[2021-03-07 06:51] LABS: GLUCOMETER DEV NAME(LOC) BV2S.; GLUCOSE,POINT OF CARE 79 MG/DL (70-110)
[2021-03-07] MEDS ORDERED: SERT-158 PO (08:06)
[2021-03-07] MEDS ORDERED: LITH300C3 PO ×2 (08:07→08:08)
[2021-03-07] MEDS ORDERED: ARIP400S3 IM (08:08)
[2021-03-07] MEDS ORDERED: METF-960 PO (08:09)
[2021-03-07] MEDS ORDERED: SITA50 PO (08:09)
[2021-03-07 08:12] VITALS: BP 102/57
[2021-03-07] MEDS: SERTRALINE HCL 50 MG TABLET PO SCH (08:44)
[2021-03-07] MEDS: SitaGLIPtin PHOSPHATE 50 MG TABLET PO SCH (08:45)
[2021-03-07] MEDS: TRIHEXYPHENIDYL HCL 2 MG TABLET PO SCH ×2 (08:46→13:39)
[2021-03-07] MEDS: LITHIUM CARBONATE 300 MG ER TABLET PO SCH (08:46)
[2021-03-07] MEDS ORDERED: ARIPiprazole ER SUSPENSION 400 MG PRE-FILLED DUAL CHAMBER SYRINGE IM SCH (11:00)
[2021-03-07 11:05] LABS: GLUCOMETER DEV NAME(LOC) BV2S.; GLUCOSE,POINT OF CARE 82 MG/DL (70-110)
== END 2021-03-07 15:13 | disposition home or self-care (01) | DRG 750 ==
LOC: B2S 17:26
DX: F25.1 Schizoaffective disorder, depressive type (principal); E11.9 Type 2 diabetes mellitus without complications; F17.200 Nicotine dependence, unspecified, uncomplicated; Z20.822 Contact with and (suspected) exposure to COVID-19; K59.00 Constipation, unspecified; F41.9 Anxiety disorder, unspecified; Z79.899 Other long term (current) drug therapy; Z91.51 Personal history of suicidal behavior; Z71.6 Tobacco abuse counseling; Z79.84 Long term (current) use of oral hypoglycemic drugs; Z28.21 Immunization not carried out because of patient refusal
CPT/HCPCS: 80053; 80061; 82962; 83036; 84439; 84443; 84702; 85025; J0401; J3535

== ENCOUNTER 2021-05-05 09:27 | Inpatient (IN) | payer MEDICAID ==
[~2021-05-05] VITALS: Ht 167.6 cm; Wt 79.8 kg
[~2021-05-05 09:27] MED LIST changes: +ARIP400S3 IM; -FLUO-191 PO; +LITH300C3 PO; -LITH600C5 PO; +METF-1211 PO; -METF-444 PO; -OLAN5TAB52 PO; +SERT-158 PO; +SITA50 PO
[2021-05-05] MEDS ORDERED: ZOLPIDEM TARTRATE 10 MG TABLET PO PRN (15:30)
[2021-05-05] MEDS ORDERED: TRAZ-252 PO (15:39)
[2021-05-05 18:51] LABS: GLUCOMETER DEV NAME(LOC) POC.BV
[2021-05-05] MEDS: LORazepam 2 MG TABLET PO PRN (20:42)
[2021-05-05 20:54] VITALS: BP 137/76
[2021-05-05] MEDS ORDERED: INFLUENZA VIRUS VACCINE QVS 2021-22 (6MO+)/PF 60 MCG/0.5 ML SYRINGE IM. ONE (21:15)
[2021-05-05] MEDS ORDERED: PNEUMOCOCCAL VACCINE POLYVALENT 0.5 ML VIAL [PPSV23] IM. ONE (21:15)
[2021-05-06 00:48] LABS: GLUCOMETER DEV NAME(LOC) BV2X.2; GLUCOSE,POINT OF CARE 219 MG/DL (70-110)
[2021-05-06 00:50] VITALS: BP 126/74
[2021-05-06] MEDS: MetFORMIN HCL 500 MG TABLET PO SCH ×2 (06:19→16:29)
[2021-05-06 06:21] LABS: GLUCOMETER DEV NAME(LOC) BV2S.; GLUCOSE,POINT OF CARE 149 MG/DL (70-110)
[2021-05-06 08:00] VITALS: BP 101/68
[2021-05-06] MEDS: SitaGLIPtin PHOSPHATE 25 MG TABLET PO SCH (08:22)
[2021-05-06] MEDS ORDERED: DOCUSATE SODIUM 100 MG CAPSULE PO PRN (09:15)
[2021-05-06] MEDS ORDERED: BACITRACIN 28 GM OINTMENT TP PRN (09:15)
[2021-05-06] MEDS ORDERED: MAGNESIUM HYDROXIDE SUSPENSION 30 ML UDCUP PO PRN (09:15)
[2021-05-06] MEDS ORDERED: ALBUTEROL SULFATE HFA 90 MCG/PUFF 8 GM INHALER IH PRN (09:15)
[2021-05-06] MEDS ORDERED: PETROLATUM,WHITE 28 GM JELLY TP PRN (09:15)
[2021-05-06] MEDS ORDERED: OMEPRAZOLE 20 MG CAPSULE PO PRN (09:15)
[2021-05-06] MEDS ORDERED: ONDANSETRON HCL 4 MG TABLET PO PRN (09:15)
[2021-05-06] MEDS ORDERED: IBUPROFEN 600 MG TABLET PO PRN (09:15)
[2021-05-06] MEDS ORDERED: ACETAMINOPHEN 325 MG TABLET PO PRN (09:15)
[2021-05-06] MEDS ORDERED: CloNIDine HCL 0.1 MG TABLET PO PRN (09:15)
[2021-05-06] MEDS ORDERED: BENZOCAINE/MENTHOL LOZENGE PO PRN (09:15)
[2021-05-06] MEDS ORDERED: GLUCAGON,HUMAN RECOMBINANT 1 MG VIAL IM PRN (09:15)
[2021-05-06] MEDS ORDERED: LOPERAMIDE HCL 2 MG CAPSULE PO PRN (09:15)
[2021-05-06] MEDS ORDERED: MAG HYDROX/AL HYDROX/SIMETH ES 30 ML SUSPENSION UDCUP PO PRN (09:15)
[2021-05-06 11:26] LABS: GLUCOMETER DEV NAME(LOC) BV2S.; GLUCOSE,POINT OF CARE 140 MG/DL (70-110)
[2021-05-06] MEDS: LORazepam 2 MG TABLET PO PRN (13:39)
[2021-05-06 16:07] VITALS: BP 129/74
[2021-05-06] MEDS: TRIHEXYPHENIDYL HCL 2 MG TABLET PO SCH (16:29)
[2021-05-06 16:31] LABS: GLUCOMETER DEV NAME(LOC) BV2S.; GLUCOSE,POINT OF CARE 115 MG/DL (70-110)
[2021-05-06] MEDS: HALOPERIDOL 5 MG TABLET PO PRN (16:53)
[2021-05-06 20:21] LABS: GLUCOMETER DEV NAME(LOC) BV2S.; GLUCOSE,POINT OF CARE 99 MG/DL (70-110)
[2021-05-06] MEDS: TraZODone HCL 50 MG TABLET PO SCH (20:31)
[2021-05-06] MEDS: LITHIUM CARBONATE 300 MG CAPSULE PO SCH (20:32)
[2021-05-07 03:44] VITALS: BP 103/68
[2021-05-07 07:16] LABS: BASOPHILS % (AUTO) 0.4 % (0.0-2.0); EOSINOPHILS % (AUTO) 0 % (1.0-6.0); HEMATOCRIT 34.8 % (36-46); HEMOGLOBIN 12.1 g/dL (12.0-16.0); LYMPHOCYTES # (AUTO) 1.5 K/uL (1.0-4.8); MEAN CORPUSCULAR HEMOGLOBIN 30.1 pg (26.0-34.0); MEAN CORPUSCULAR HGB CONC 34.8 G/dL (31.0-37.0); MEAN CORPUSCULAR VOLUME 87 fL (80-100); MONOCYTES # (AUTO) 0.4 K/uL (0.1-1.0); MONOCYTES % (AUTO) 6.7 % (2.0-9.0); NEUTROPHILS # (AUTO) 3.4 K/uL (1.8-7.7); NEUTROPHILS % (AUTO) 64.9 % (40.0-70.0); PLATELET COUNT (AUTO) 236 K/uL (150-450); RED BLOOD CELL COUNT(AUTO) 4.02 MIL/uL (4.00-5.20); RED CELL DISTRIBUTION WIDTH 13.1 % (11.5-14.5)
[2021-05-07] MEDS: MetFORMIN HCL 500 MG TABLET PO SCH ×2 (07:16→16:33)
[2021-05-07 07:21] LABS: GLUCOMETER DEV NAME(LOC) BV2S.; GLUCOSE,POINT OF CARE 116 MG/DL (70-110)
[2021-05-07 07:34] LABS: HEMOGLOBIN A1C 5.6 % (3.8-5.6)
[2021-05-07 07:44] LABS: ALANINE AMINOTRANSFERASE 22 U/L (12-78); ALKALINE PHOSPHATASE 78 U/L (46-116); ANION GAP 4 mmol/L (8-16); ASPARTATE AMINOTRANSFERASE 10 U/L (15-37); BILIRUBIN,TOTAL 0.5 mg/dL (0.1-1.0); CALCIUM, TOTAL 9.1 mg/dL (8.8-10.5); CARBON DIOXIDE 28 mmol/L (22-29); CHLORIDE 104 mmol/L (98-107); CHOL/HDL RATIO 3.4 (3.9-5.7); CHOLESTEROL 186 mg/dL (131-200); CREATININE 0.64 mg/dL (0.60-1.30); FREE T4 (FREE THYROXINE) 1.14 ng/dL (0.76-1.46); GLOMERULAR FILTR. RATE CALC > 60 mL/min (>60); GLUCOSE,RANDOM 121 mg/dL (70-110); HCG,QUANTITATIVE < 1 mIU/mL (0-6); HDL CHOLESTEROL 55 mg/dL (40-60); LDL CHOL (CALC.) 109 mg/dL (0-130); POTASSIUM 4.3 mmol/L (3.5-5.1); SODIUM SERUM 136 mmol/L (136-145); TRIGLYCERIDES 109 mg/dL (15-150); UREA NITROGEN, BLOOD 15 mg/dL (7-18)
[2021-05-07 08:13] VITALS: BP 125/69
[2021-05-07] MEDS: SitaGLIPtin PHOSPHATE 25 MG TABLET PO SCH (08:43)
[2021-05-07] MEDS: TRIHEXYPHENIDYL HCL 2 MG TABLET PO SCH ×2 (08:43→16:33)
[2021-05-07 11:21] LABS: GLUCOMETER DEV NAME(LOC) BV2S.; GLUCOSE,POINT OF CARE 84 MG/DL (70-110)
[2021-05-07 16:04] VITALS: BP 134/77
[2021-05-07 16:26] LABS: GLUCOMETER DEV NAME(LOC) BV2S.; GLUCOSE,POINT OF CARE 114 MG/DL (70-110)
[2021-05-07 20:26] LABS: GLUCOMETER DEV NAME(LOC) BV2S.; GLUCOSE,POINT OF CARE 80 MG/DL (70-110)
[2021-05-07] MEDS: TraZODone HCL 50 MG TABLET PO SCH (20:43)
[2021-05-07] MEDS: LITHIUM CARBONATE 300 MG CAPSULE PO SCH (20:44)
[2021-05-07] MEDS ORDERED: DENTURE ADHESIVE 68 GM CREAM DT PRN (20:45)
[2021-05-08 00:28] VITALS: BP 129/71
[2021-05-08 06:35] LABS: GLUCOMETER DEV NAME(LOC) BV2S.; GLUCOSE,POINT OF CARE 103 MG/DL (70-110)
[2021-05-08] MEDS: MetFORMIN HCL 500 MG TABLET PO SCH ×2 (07:06→16:58)
[2021-05-08 08:14] VITALS: BP 105/57
[2021-05-08] MEDS: TRIHEXYPHENIDYL HCL 2 MG TABLET PO SCH ×2 (08:20→16:58)
[2021-05-08] MEDS: SitaGLIPtin PHOSPHATE 25 MG TABLET PO SCH (08:20)
[2021-05-08] MEDS: INSULIN LISPRO 100 UNITS/ML SQ PRN (11:06)
[2021-05-08 11:41] LABS: GLUCOMETER DEV NAME(LOC) BV2S.; GLUCOSE,POINT OF CARE 141 MG/DL (70-110)
[2021-05-08 16:18] VITALS: BP 121/67
[2021-05-08 16:31] LABS: GLUCOMETER DEV NAME(LOC) BV2S.; GLUCOSE,POINT OF CARE 91 MG/DL (70-110)
[2021-05-08] MEDS: TraZODone HCL 50 MG TABLET PO SCH (20:29)
[2021-05-08] MEDS: LITHIUM CARBONATE 300 MG CAPSULE PO SCH (20:29)
[2021-05-08 20:51] LABS: GLUCOMETER DEV NAME(LOC) BV2S.; GLUCOSE,POINT OF CARE 91 MG/DL (70-110)
[2021-05-09 00:43] VITALS: BP 137/71
[2021-05-09 06:36] LABS: GLUCOMETER DEV NAME(LOC) BV2S.; GLUCOSE,POINT OF CARE 94 MG/DL (70-110)
[2021-05-09] MEDS: MetFORMIN HCL 500 MG TABLET PO SCH ×2 (06:45→17:34)
[2021-05-09 08:08] VITALS: BP 117/67
[2021-05-09] MEDS: SitaGLIPtin PHOSPHATE 25 MG TABLET PO SCH (08:38)
[2021-05-09] MEDS: TRIHEXYPHENIDYL HCL 2 MG TABLET PO SCH ×2 (08:38→17:34)
[2021-05-09] MEDS: LORazepam 2 MG TABLET PO PRN (08:51)
[2021-05-09] MEDS: HALOPERIDOL 5 MG TABLET PO PRN (08:51)
[2021-05-09 11:26] LABS: GLUCOMETER DEV NAME(LOC) BV2S.; GLUCOSE,POINT OF CARE 97 MG/DL (70-110)
[2021-05-09] MEDS ORDERED: ARIPiprazole ER SUSPENSION 400 MG PRE-FILLED DUAL CHAMBER SYRINGE IM SCH (16:00)
[2021-05-09 16:16] VITALS: BP 131/60
[2021-05-09 16:51] LABS: GLUCOMETER DEV NAME(LOC) BV2S.; GLUCOSE,POINT OF CARE 113 MG/DL (70-110)
[2021-05-09] MEDS: TraZODone HCL 50 MG TABLET PO SCH (20:24)
[2021-05-09] MEDS: LITHIUM CARBONATE 300 MG CAPSULE PO SCH (20:24)
[2021-05-09 21:01] LABS: GLUCOMETER DEV NAME(LOC) BV2S.; GLUCOSE,POINT OF CARE 142 MG/DL (70-110)
[2021-05-09] MEDS: INSULIN LISPRO 100 UNITS/ML SQ PRN (21:06)
[2021-05-10 00:28] VITALS: BP 127/73
[2021-05-10] MEDS: HALOPERIDOL 5 MG TABLET PO PRN (03:13)
[2021-05-10] MEDS: LORazepam 2 MG TABLET PO PRN ×2 (03:13→09:26)
[2021-05-10] MEDS: MetFORMIN HCL 500 MG TABLET PO SCH ×2 (06:35→16:18)
[2021-05-10 07:01] LABS: GLUCOMETER DEV NAME(LOC) BV2S.; GLUCOSE,POINT OF CARE 78 MG/DL (70-110)
[2021-05-10 08:25] VITALS: BP 119/74
[2021-05-10] MEDS: TRIHEXYPHENIDYL HCL 2 MG TABLET PO SCH ×2 (09:22→16:18)
[2021-05-10] MEDS: SitaGLIPtin PHOSPHATE 25 MG TABLET PO SCH (09:22)
[2021-05-10 10:26] LABS: GLUCOMETER DEV NAME(LOC) POC.BV
[2021-05-10 11:51] LABS: GLUCOMETER DEV NAME(LOC) BV2S.; GLUCOSE,POINT OF CARE 84 MG/DL (70-110)
[2021-05-10] MEDS ORDERED: TRIH2TAB3 PO (14:48)
[2021-05-10] MEDS ORDERED: LITH450CRT PO (14:49)
[2021-05-10 16:05] VITALS: BP 129/69
[2021-05-10 16:36] LABS: GLUCOMETER DEV NAME(LOC) BV2S.; GLUCOSE,POINT OF CARE 116 MG/DL (70-110)
== END 2021-05-10 17:45 | disposition home or self-care (01) | DRG 750 ==
LOC: B3A 15:33 → B2S 21:45
PROVIDERS: ADMIT Psychiatry & Neurology Psychiatry; ATTEND Psychiatry & Neurology Psychiatry
DX: F25.9 Schizoaffective disorder, unspecified (principal); E11.9 Type 2 diabetes mellitus without complications; R45.851 Suicidal ideations; F32.A Depression, unspecified; F41.9 Anxiety disorder, unspecified; K59.00 Constipation, unspecified; F17.210 Nicotine dependence, cigarettes, uncomplicated; Z79.899 Other long term (current) drug therapy; Z20.822 Contact with and (suspected) exposure to COVID-19
CPT/HCPCS: 80053; 80061; 82962; 83036; 84439; 84443; 84702; 85025; 90686; 90732; J0401